=== PATIENT | male | born 1945 | race Caucasian/White ===

== ENCOUNTER 2017-05-31 15:44 | Emergency (ER) | payer BC, OTHER ==
[~2017-05-31] VITALS: Ht 180.3 cm; Wt 90.0 kg
[2017-05-31] MEDS ORDERED: IOHEXOL 350 MG/ML 10 ML VIAL (for RAD DIAG) IVCONTRAST ONE (15:45)
[2017-05-31 15:52] VITALS: TEMP 97.7
[2017-05-31] MEDS ORDERED: ONDANSETRON HCL 4 MG/2 ML VIAL IV PUSH ONE (16:00)
[2017-05-31] MEDS ORDERED: SODIUM CHLORIDE 0.9% FLUSH 10 ML FLUSH IVF PRN (16:00)
[2017-05-31] MEDS ORDERED: MORPHINE SULFATE 4 MG/ML INJ IV ONE (16:00)
[2017-05-31 16:01] VITALS: BP 185/90; PULSE 65; RESP 14; O2SAT 97
--- NOTE | 2017-05-31 16:23 | RADRPT ---
EXAM DATE/TIME: 05/31/2017 16:01 [facility] COMPARISON: No previous studies available for comparison. INDICATIONS : Pain in chest, patient fell off roof 1 story. MEDICAL HISTORY : None. SURGICAL HISTORY : None. ENCOUNTER: Initial ACUITY: 1 day PAIN SCORE: 0/10 LOCATION: Bilateral chest FINDINGS: A single view of the chest demonstrates the lungs to be symmetrically aerated without evidence of mas s, infiltrate or effusion. The cardiomediastinal contours are unremarkable. Osseous structures are intact. CONCLUSION: 1. No acute cardiopulmonary findings. Kristofer Agustin MD on May 31, 2017 at 16:21 Board Certified Radiologist. This report was verified electronically.
[2017-05-31 16:50] LABS: BASOPHIL # 0.1 TH/MM3 (0-0.2); BASOPHIL % 0.9 % (0.0-2.0); EOSINOPHIL # 0.2 TH/MM3 (0-0.4); HEMATOCRIT 40.7 % (39.0-51.0); HEMO FLAGS DIFF FINAL; LYMPH % 12.2 % (9.0-44.0); MEAN CELL VOLUME 88.5 FL (80.0-100.0); MEAN CORPUSCULAR HEMOGLOBIN 30.1 PG (27.0-34.0); MONO % 9.1 % (0.0-8.0); NEUT % 75.8 % (16.0-70.0); PLATELET COUNT 238 TH/MM3 (150-450); RED CELL DISTRIBUTION WIDTH 12.7 % (11.6-17.2); WHITE BLOOD COUNT 7.9 TH/MM3 (4.0-11.0)
[2017-05-31 16:57] LABS: APTT (PATIENT) 25.9 SEC (24.3-30.1); PROTHROMBIN TIME - PATIENT 11.1 SEC (9.8-11.6)
[2017-05-31 17:10] LABS: BICARBONATE 25.8 MEQ/L (21.0-32.0); POTASSIUM 3.9 MEQ/L (3.5-5.1)
--- NOTE | 2017-05-31 17:34 | PD ---
HPI Chief Complaint: Fall Time Seen by Provider: 16:00 Travel History International Travel<30 days: No Contact w/Intl Traveler<30days: No Traveled to known affect area: No History of Present Illness HPI Patient is a 71-year-old male presenting to the emergency upper after he fell off of his roof. Patient fell from approximately 10 feet, the latter patient was standing on slipped out from underneath him and he slid grabbing onto the gutter subsequent relief following to the ground. Patient presented with pain in his hand, left shoulder, abdomen. He denies any head injury or loss of consciousness. He reports his pain is minimal and states it's sore. Patient has a past medical history significant for hypertension. He currently takes aspirin 81 mg daily. He denies any back pain, leg pain, hip pain, chest pain, shortness of breath, headache. PFSH Past Medical History Cardiac Catheterization: Yes (1 stent) Diminished Hearing: No Hypertension: Yes Tetanus Vaccination: Unknown ?: Not Social History Alcohol Use: Yes (wine/beer nightly) Tobacco Use: No Substance Use: No Allergies-Medications (Allergen,Severity, Reaction): Uncoded Allergies: pcn (Allergy, Unknown, 05/31/17) Reported Meds & Prescriptions Reported Meds & Active Scripts Active Ibuprofen 600 Mg Tab 600 Mg PO Q6H PRN Flexeril (Cyclobenzaprine HCl) 5 Mg Tab 5 Mg PO TID Percocet (Oxycodone-Acetaminophen) 5-325 mg Tab 1 Tab PO Q6H PRN Review of Systems Except as stated in HPI: all other systems reviewed are Neg HENT: No: Neck Pain Gastrointestinal: Positive: Abdominal Pain Musculoskeletal: Positive: Myalgias, Pain Physical Exam Narrative GENERAL: Well-developed, well-nourished, alert male. Resting comfortably in no acute distress. SKIN: Warm and dry. Ecchymosis noted to bilateral palms. Laceration to right lower lip HEAD: Atraumatic. Normocephalic. EYES: Pupils equal and round. No scleral icterus. No injection or drainage. ENT: No nasal bleeding or discharge. Mucous membranes pink and moist. NECK: Trachea midline. No JVD. CARDIOVASCULAR: Regular rate and rhythm. RESPIRATORY: No accessory muscle use. Clear to auscultation. Breath sounds equal bilaterally. GASTROINTESTINAL: Abdomen soft, tenderness to palpation in right upper quadrant and right flank, nondistended. Hepatic and splenic margins not palpable. Positive bowel sounds, positive guarding, no rebound. MUSCULOSKELETAL: Extremities without clubbing, cyanosis, or edema. No obvious deformities. NEUROLOGICAL: Awake and alert. No obvious cranial nerve deficits. Motor grossly within normal limits. Five out of 5 muscle strength in the arms and legs. Normal speech. Full range of motion in left shoulder. Tenderness to palpation in the paraspinal musculature and cervical region. No spinal tenderness or step-off noted. PSYCHIATRIC: Appropriate mood and affect; insight and judgment normal. Data Data Last Documented VS Vital Signs Date Time Temp Pulse Resp B/P (MAP) Pulse Ox O2 Delivery O2 Flow Rate FiO2 05/31/17 19:53 05/31/17 16:10 98 Room Air 05/31/17 16:01 65 14 05/31/17 15:52 97.7 Orders Orders Basic Metabolic Panel (Bmp) (05/31/17 16:00) Complete Blood Count With Diff (05/31/17 16:00) Prothrombin Time / Inr (Pt) (05/31/17 16:00) Act Partial Throm Time (Ptt) (05/31/17 16:00) Chest, Single Ap (05/31/17 16:00) Ct Brain W/O Iv Contrast(Rout) (05/31/17 16:00) Ct Cerv Spine W/O Contrast (05/31/17 16:00) Ct Abd/Pel W Iv Contrast(Rout) (05/31/17 16:00) Ct Thorax/ Chest W Iv Contrast (05/31/17 16:00) Ct Thor Spine W/O Contrast (05/31/17 16:00) Ct Lumb Spine W/O Contrast (05/31/17 16:00) Iv Access Insert/Monitor (05/31/17 16:00) Ecg Monitoring (05/31/17 16:00) Oximetry (05/31/17 16:00) Oxygen Administration (05/31/17 16:00) Morphine Inj (Morphine Inj) (05/31/17 16:00) Sodium Chloride 0.9% Flush (Ns Flush) (05/31/17 16:00) Ondansetron Inj (Zofran Inj) (05/31/17 16:00) Iohexol 350 Inj (Omnipaque 350 Inj) (05/31/17 15:45) Lidocaine 1% Inj (50 Ml) (Xylocaine 1% I (05/31/17 19:00) Labs Laboratory Tests Test 05/31/17 16:10 White Blood Count 7.9 TH/MM3 Red Blood Count 4.60 MIL/MM3 Hemoglobin 13.8 GM/DL Hematocrit 40.7 % Mean Corpuscular Volume 88.5 FL Mean Corpuscular Hemoglobin 30.1 PG Mean Corpuscular Hemoglobin Concent 34.0 % Red Cell Distribution Width 12.7 % Platelet Count 238 TH/MM3 Mean Platelet Volume 8.7 FL Neutrophils (%) (Auto) 75.8 % Lymphocytes (%) (Auto) 12.2 % Monocytes (%) (Auto) 9.1 % Eosinophils (%) (Auto) 2.0 % Basophils (%) (Auto) 0.9 % Neutrophils # (Auto) 6.0 TH/MM3 Lymphocytes # (Auto) 1.0 TH/MM3 Monocytes # (Auto) 0.7 TH/MM3 Eosinophils # (Auto) 0.2 TH/MM3 Basophils # (Auto) 0.1 TH/MM3 CBC Comment DIFF FINAL Differential Comment Prothrombin Time 11.1 SEC Prothromb Time International Ratio 1.0 RATIO Activated Partial Thromboplast Time 25.9 SEC Blood Urea Nitrogen 23 MG/DL Creatinine 1.23 MG/DL Random Glucose 123 MG/DL Calcium Level 8.5 MG/DL Sodium Level 144 MEQ/L Potassium Level 3.9 MEQ/L Chloride Level 111 MEQ/L Carbon Dioxide Level 25.8 MEQ/L Anion Gap 7 MEQ/L Estimat Glomerular Filtration Rate 58 ML/MIN MDM Medical Decision Making Medical Screen Exam Complete: Yes Emergency Medical Condition: Yes Interpretation(s) Last Impressions Head CT 05/31/17 1600 Signed Impressions: Service Date/Time: Wednesday, May 31, 2017 17:51 - CONCLUSION: No bleed or other acute intracranial abnormality. Wilder Jimenez MD Chest X-Ray 05/31/17 1600 Signed Impressions: Service Date/Time: Wednesday, May 31, 2017 16:01 - CONCLUSION: 1. No acute cardiopulmonary findings. Kristofer Agustin MD Chest CT 05/31/17 1600 Signed Impressions: Service Date/Time: Wednesday, May 31, 2017 18:08 - CONCLUSION: No evidence of acute traumatic chest injury. Trace atelectasis of both lung bases. Wilder Jimenez MD Cervical Spine CT 05/31/17 1600 Signed Impressions: Service Date/Time: Wednesday, May 31, 2017 17:58 - CONCLUSION: No fracture or subluxation of the cervical spine. Degenerative changes as above. Wilder Jimenez MD Abdomen/Pelvis CT 05/31/17 1600 Signed Impressions: Service Date/Time: Wednesday, May 31, 2017 18:03 - CONCLUSION: No visceral organ injury, fracture or other acute abnormality demonstrated. Wilder Jimenez MD Laboratory Tests Test 05/31/17 16:10 White Blood Count 7.9 TH/MM3 Red Blood Count 4.60 MIL/MM3 Hemoglobin 13.8 GM/DL Hematocrit 40.7 % Mean Corpuscular Volume 88.5 FL Mean Corpuscular Hemoglobin 30.1 PG Mean Corpuscular Hemoglobin Concent 34.0 % Red Cell Distribution Width 12.7 % Platelet Count 238 TH/MM3 Mean Platelet Volume 8.7 FL Neutrophils (%) (Auto) 75.8 % Lymphocytes (%) (Auto) 12.2 % Monocytes (%) (Auto) 9.1 % Eosinophils (%) (Auto) 2.0 % Basophils (%) (Auto) 0.9 % Neutrophils # (Auto) 6.0 TH/MM3 Lymphocytes # (Auto) 1.0 TH/MM3 Monocytes # (Auto) 0.7 TH/MM3 Eosinophils # (Auto) 0.2 TH/MM3 Basophils # (Auto) 0.1 TH/MM3 CBC Comment DIFF FINAL Differential Comment Prothrombin Time 11.1 SEC Prothromb Time International Ratio 1.0 RATIO Activated Partial Thromboplast Time 25.9 SEC Blood Urea Nitrogen 23 MG/DL Creatinine 1.23 MG/DL Random Glucose 123 MG/DL Calcium Level 8.5 MG/DL Sodium Level 144 MEQ/L Potassium Level 3.9 MEQ/L Chloride Level 111 MEQ/L Carbon Dioxide Level 25.8 MEQ/L Anion Gap 7 MEQ/L Estimat Glomerular Filtration Rate 58 ML/MIN Vital Signs Date Time Temp Pulse Resp B/P (MAP) Pulse Ox O2 Delivery O2 Flow Rate FiO2 05/31/17 16:10 98 Room Air 05/31/17 16:01 65 14 185/90 (121) 97 Room Air 05/31/17 15:52 97.7 68 18 Differential Diagnosis Hemorrhage versus sprain versus strain versus fracture versus other Narrative Course Patient is a 71-year-old male presented to the emergency department after falling off of a ladder and his roof. Patient was brought in via EMS on a backboard and in a cervical collar. Patient's vital signs are stable, there were no focal deficits noted on exam. Due to mechanism of injury patient was alegria scanned. Patient was given morphine and Zofran for pain. Labs reviewed, no acute abnormalities identified. CT of the brain is negative for acute abnormality CT of the cervical spine is negative for acute abnormality CT of the chest is negative for acute abnormality CT scan of the abdomen and pelvis is negative for acute abnormality Please see procedure report for laceration repair. Patient was advised that he may feel more sore tomorrow. He was encouraged to take medications as needed and as directed for pain. He was encouraged to avoid driving while taking narcotic pain medication. He was advised follow-up with his primary doctor. He was encouraged to return to emergency department for any new or worsening symptoms. Was understanding of these instructions. Patient is stable for discharge. Diagnosis Primary Impression: Fall Qualified Codes: W19.XXXA - Unspecified fall, initial encounter Additional Impressions: Lip laceration Qualified Codes: S01.511A - Laceration without foreign body of lip, initial encounter Contusion of hand(s) Referrals: Primary Care Physician Patient Instructions: Contusion in Adults (ED), General Instructions, Muscle Strain (DC), Narcotic given in the ED Additional Instructions: Follow-up with your primary doctor Return to emergency department for any new or worsening symptoms Take medications as needed and as directed for pain Do not drive or operate machinery taking narcotic pain medication Apply warm moist heat to affected areas, continue range of motion exercises, avoid bed rest, avoid exacerbating activities. Med/Other Pt SpecificInfo: Prescription(s) given Scripts Sulfamethoxazole-Trimethoprim (Bactrim DS) 800-160 Mg Tab 1 TAB PO BID for Infection, #14 TAB 0 Refills Prov: Ladonna Mckeon 05/31/17 Ibuprofen (Ibuprofen) 600 Mg Tab 600 MG PO Q6H Y for PAIN, #30 TAB 0 Refills Prov: Ladonna Mckeon 05/31/17 Cyclobenzaprine (Flexeril) 5 Mg Tab 5 MG PO TID for Muscle Spasm, #30 TAB 0 Refills Prov: Ladonna Mckeon 05/31/17 Oxycodone-Acetaminophen (Percocet) 5-325 mg Tab 1 TAB PO Q6H Y for PAIN, #10 TAB 0 Refills Prov: Ladonna Mckeon 05/31/17 Disposition: 01 DISCHARGE HOME Condition: Stable Ladonna Mckeon May 31, 2017 17:34
--- NOTE | 2017-05-31 18:18 | RADRPT ---
EXAM DATE/TIME: 05/31/2017 17:51 [facility] COMPARISON: No previous studies available for comparison. INDICATIONS : Patient fall from roof, head pain. RADIATION DOSE: 56.35 CTDIvol (mGy) MEDICAL HISTORY : Hypertension. SURGICAL HISTORY : Coronary artery stent. ENCOUNTER: Initial ACUITY: 1 day PAIN SCALE: 7/10 LOCATION: Right cranial TECHNIQUE: Multiple contiguous axial images were obtained of the head. Using automated exposure control and adj ustment of the mA and/or kV according to patient size, radiation dose was kept as low as reasonably a chievable to obtain optimal diagnostic quality images. DICOM format image data is available electro nically for review and comparison. FINDINGS: CEREBRUM: The ventricles are normal for age. No evidence of midline shift, mass lesion, hemorrhage or acute in farction. No extra-axial fluid collections are seen. Mild chronic low-attenuation seen in the perive ntricular white matter. POSTERIOR FOSSA: The cerebellum and brainstem are intact. The 4th ventricle is midline. The cerebellopontine angle i s unremarkable. EXTRACRANIAL: The visualized portion of the orbits is intact. SKULL: The calvaria is intact. No evidence of skull fracture. CONCLUSION: No bleed or other acute intracranial abnormality. Wilder Jimenez MD on May 31, 2017 at 18:16 Board Certified Radiologist. This report was verified electronically.
--- NOTE | 2017-05-31 18:37 | RADRPT ---
EXAM DATE/TIME: 05/31/2017 17:58 [facility] COMPARISON: No previous studies available for comparison. INDICATIONS : Neck pain due to fall off roof. RADIATION DOSE: 41.84 CTDIvol (mGy) MEDICAL HISTORY : Hypertension. SURGICAL HISTORY : Coronary artery stent. ENCOUNTER: Initial ACUITY: 1 day PAIN SCALE: 7/10 LOCATION: Right neck region. TECHNIQUE: Volumetric scanning of the cervical spine was performed. Multiplanar reconstructions in the sagittal, coronal and oblique axial planes were performed. Using automated exposure control and adjustment o f the mA and/or kV according to patient size, radiation dose was kept as low as reasonably achievable to obtain optimal diagnostic quality images. DICOM format image data is available electronically f or review and comparison. FINDINGS: VERTEBRAE: Normal vertebral body height. ALIGNMENT: No evidence of subluxation. C2-C3: The bony spinal canal is normal in size. No evidence of disc bulge or herniation. The neural forami na are bilaterally patent. C3-C4: The bony spinal canal is normal in size. No evidence of disc bulge or herniation. The neural forami na are bilaterally patent. C4-C5: Mild disc space narrowing without perceptible bulge or protrusion. There is right greater than left u ncovertebral and facet osteoarthritis. No perceptible foraminal or spinal stenosis. C5-C6: Severe disc space narrowing with a small, broad/diffuse disc osteophyte complex and moderate bilatera l uncovertebral and facet osteoarthritis. There is mild right and moderate left foraminal stenosis. N o significant spinal stenosis demonstrated. C6-C7: Moderate disc space narrowing with a very small, broad/diffuse disc osteophyte complex and mild to mo derate bilateral uncovertebral and facet osteoarthritis. The mild foraminal encroachment, mostly on t he left. C7-T1: Disc height within normal limits. Moderate bilateral facet osteoarthritis. CONCLUSION: No fracture or subluxation of the cervical spine. Degenerative changes as above. Wilder Jimenez MD on May 31, 2017 at 18:33 Board Certified Radiologist. This report was verified electronically.
--- NOTE | 2017-05-31 18:40 | RADRPT ---
EXAM DATE/TIME: 05/31/2017 18:03 [facility] COMPARISON: No previous studies available for comparison. INDICATIONS : Gastric pain due to fall off of roof. IV CONTRAST: 95 cc Omnipaque 350 (iohexol) IV ORAL CONTRAST: No oral contrast ingested. RADIATION DOSE: 9.96 CTDIvol (mGy) ; Combined studies - Thorax/Abdomen/Pelvis MEDICAL HISTORY : Hypertension. SURGICAL HISTORY : Coronary artery stent. ENCOUNTER: Initial ACUITY: 1 day PAIN SCALE: 6/10 LOCATION: gastric region. TECHNIQUE: Volumetric scanning of the abdomen and pelvis was performed. Using automated exposure control and ad justment of the mA and/or kV according to patient size, radiation dose was kept as low as reasonably achievable to obtain optimal diagnostic quality images. DICOM format image data is available electro nically for review and comparison. FINDINGS: LIVER: Homogeneous density without lesion. There is no dilation of the biliary tree. No calcified gallston es. SPLEEN: Normal size without lesion. PANCREAS: Scattered small cysts. The kidneys are intact. KIDNEYS: Normal in size and shape. There is no mass, stone or hydronephrosis. ADRENAL GLANDS: Within normal limits. VASCULAR: There is no aortic aneurysm. BOWEL/MESENTERY: The stomach, small bowel, and colon demonstrate no acute abnormality. There is no free intraperitone al air or fluid. Normal appendix. ABDOMINAL WALL: Within normal limits. RETROPERITONEUM: There is no lymphadenopathy. BLADDER: No wall thickening or mass. REPRODUCTIVE: Within normal limits. INGUINAL: There is no lymphadenopathy or hernia. MUSCULOSKELETAL: No fracture seen of the visualized osseous structures. CONCLUSION: No visceral organ injury, fracture or other acute abnormality demonstrated. Wilder Jimenez MD on May 31, 2017 at 18:36 Board Certified Radiologist. This report was verified electronically.
--- NOTE | 2017-05-31 18:42 | RADRPT ---
EXAM DATE/TIME: 05/31/2017 18:08 [facility] COMPARISON: No previous studies available for comparison. INDICATIONS : Chest pains from fall off of roof. IV CONTRAST: 95 cc Omnipaque 350 (iohexol) IV RADIATION DOSE: 9.96 CTDIvol (mGy) MEDICAL HISTORY : Hypertension. SURGICAL HISTORY : Coronary artery stent. ENCOUNTER: Initial ACUITY: 1 day PAIN SCALE: 6/10 LOCATION: Right chest TECHNIQUE: Volumetric scanning of the chest was performed. Using automated exposure control and adjustment of t he mA and/or kV according to patient size, radiation dose was kept as low as reasonably achievable to obtain optimal diagnostic quality images. DICOM format image data is available electronically for review and comparison. Follow-up recommendations for detected pulmonary nodules are based at a minimum on nodule size and pa tient risk factors according to Fleischner Society Guidelines. FINDINGS: LUNGS: Trace atelectasis of the bases. PLEURA: There is no pleural thickening or pleural effusion. MEDIASTINUM: The heart and great vessels demonstrate no acute abnormality. There is no mediastinal or hilar lymph adenopathy. AXILLAE: Within normal limits. No lymphadenopathy. SKELETAL: Within normal limits for patient age. MISCELLANEOUS: The visualized upper abdominal organs demonstrate no acute abnormality. CONCLUSION: No evidence of acute traumatic chest injury. Trace atelectasis of both lung bases. Wilder Jimenez MD on May 31, 2017 at 18:39 Board Certified Radiologist. This report was verified electronically.
--- NOTE | 2017-05-31 18:52 | RADRPT ---
EXAM DATE/TIME: 05/31/2017 18:08 [facility] COMPARISON: No previous studies available for comparison. INDICATIONS : Mid back pain due to fall off roof. RADIATION DOSE: ; Reconstructed from previous dataset, no dose MEDICAL HISTORY : Hypertension. SURGICAL HISTORY : Coronary artery stent. ENCOUNTER: Initial ACUITY: 1 day PAIN SCALE: 7/10 LOCATION: Right chest region. TECHNIQUE: Volumetric scanning of the thoracic spine was performed. Multiplanar reconstructions in the sagittal , coronal and oblique axial planes were performed. Using automated exposure control and adjustment o f the mA and/or kV according to patient size, radiation dose was kept as low as reasonably achievable to obtain optimal diagnostic quality images. DICOM format image data is available electronically f or review and comparison. FINDINGS: Slight dextroconvex curvature and mild exaggeration of the thoracic kyphosis. The vertebral bodies of the thoracic spine are without subluxation. Vertebral body height is maintained. No fractures are seen. T1-T2: Normal. T2-T3: The thecal sac has a normal diameter. No evidence of disc bulge or protrusion. T3-T4: The thecal sac has a normal diameter. No evidence of disc bulge or protrusion. T4-T5: The thecal sac has a normal diameter. No evidence of disc bulge or protrusion. T5-T6: The thecal sac has a normal diameter. No evidence of disc bulge or protrusion. T6-T7: The thecal sac has a normal diameter. No evidence of disc bulge or protrusion. T7-T8: The thecal sac has a normal diameter. No evidence of disc bulge or protrusion. T8-T9: Mild disc space narrowing and vacuum phenomena. Mild anterior and lateral osseous ridging. No foramin al or spinal stenosis. T9-T10: The thecal sac has a normal diameter. No evidence of disc bulge or protrusion. T10-T11: The thecal sac has a normal diameter. No evidence of disc bulge or protrusion. T11-T12: The thecal sac has a normal diameter. No evidence of disc bulge or protrusion. T12-L1: The thecal sac has a normal diameter. No evidence of disc bulge or protrusion. CONCLUSION: Intact thoracic spine. Very mild degenerative changes, mostly T8/T9. Also mild kyphoscoliosis. Wilder Jimenez MD on May 31, 2017 at 18:48 Board Certified Radiologist. This report was verified electronically.
[2017-05-31] MEDS ORDERED: LIDOCAINE HCL 1% 50 ML VIAL INFIL ONE (19:00)
--- NOTE | 2017-05-31 19:00 | RADRPT ---
EXAM DATE/TIME: 05/31/2017 18:03 [facility] COMPARISON: No previous studies available for comparison. INDICATIONS : Low back pain due to fall off roof. RADIATION DOSE: ; Reconstructed from previous dataset, no dose MEDICAL HISTORY : Hypertension. SURGICAL HISTORY : Coronary artery stent. ENCOUNTER: Initial ACUITY: 1 day PAIN SCALE: 6/10 LOCATION: Right lower back. TECHNIQUE: Volumetric scanning of the lumbar spine was performed. Multiplanar reconstructions in the sagittal, coronal and oblique axial planes were performed. Using automated exposure control and adjustment of the mA and/or kV according to patient size, radiation dose was kept as low as reasonably achievable t o obtain optimal diagnostic quality images. DICOM format image data is available electronically for review and comparison. FINDINGS: Slight levoconvex curvature of the lumbar spine. No subluxations. No cortical break or trabecular dis ruption. Vertebral body heights are normal. Mild disc space narrowing with moderate bilateral facet osteoarthritis seen from L3/L4-L5/S1. Small, broad-based protrusions with thickening of the ligamentum flavum seen at each level. There is mild ri ght foraminal stenosis at L4/L5 and mild left foraminal stenosis at L5/S1. CONCLUSION: 1. No fracture or subluxation of the lumbar spine. 2. Mid and lower lumbar degenerative changes as above. Wilder Jimenez MD on May 31, 2017 at 18:56 Board Certified Radiologist. This report was verified electronically.
[2017-05-31] MEDS ORDERED: IBUP-232 PO (19:10)
[2017-05-31] MEDS ORDERED: PERC5TAB12 PO (19:10)
[2017-05-31] MEDS ORDERED: CYCL5TAB PO (19:10)
[2017-05-31] MEDS ORDERED: BACT800T5 PO (20:02)
--- NOTE | 2017-05-31 20:16 | PD ---
Physical Exam Date Seen by Provider: May 31, 2017 Time Seen by Provider: 20:10 Data Data Last Documented VS Vital Signs Date Time Temp Pulse Resp B/P (MAP) Pulse Ox O2 Delivery O2 Flow Rate FiO2 05/31/17 19:53 05/31/17 16:10 98 Room Air 05/31/17 16:01 65 14 05/31/17 15:52 97.7 Orders Orders Basic Metabolic Panel (Bmp) (05/31/17 16:00) Complete Blood Count With Diff (05/31/17 16:00) Prothrombin Time / Inr (Pt) (05/31/17 16:00) Act Partial Throm Time (Ptt) (05/31/17 16:00) Chest, Single Ap (05/31/17 16:00) Ct Brain W/O Iv Contrast(Rout) (05/31/17 16:00) Ct Cerv Spine W/O Contrast (05/31/17 16:00) Ct Abd/Pel W Iv Contrast(Rout) (05/31/17 16:00) Ct Thorax/ Chest W Iv Contrast (05/31/17 16:00) Ct Thor Spine W/O Contrast (05/31/17 16:00) Ct Lumb Spine W/O Contrast (05/31/17 16:00) Iv Access Insert/Monitor (05/31/17 16:00) Ecg Monitoring (05/31/17 16:00) Oximetry (05/31/17 16:00) Oxygen Administration (05/31/17 16:00) Morphine Inj (Morphine Inj) (05/31/17 16:00) Sodium Chloride 0.9% Flush (Ns Flush) (05/31/17 16:00) Ondansetron Inj (Zofran Inj) (05/31/17 16:00) Iohexol 350 Inj (Omnipaque 350 Inj) (05/31/17 15:45) Lidocaine 1% Inj (50 Ml) (Xylocaine 1% I (05/31/17 19:00) Labs Laboratory Tests Test 05/31/17 16:10 White Blood Count 7.9 TH/MM3 Red Blood Count 4.60 MIL/MM3 Hemoglobin 13.8 GM/DL Hematocrit 40.7 % Mean Corpuscular Volume 88.5 FL Mean Corpuscular Hemoglobin 30.1 PG Mean Corpuscular Hemoglobin Concent 34.0 % Red Cell Distribution Width 12.7 % Platelet Count 238 TH/MM3 Mean Platelet Volume 8.7 FL Neutrophils (%) (Auto) 75.8 % Lymphocytes (%) (Auto) 12.2 % Monocytes (%) (Auto) 9.1 % Eosinophils (%) (Auto) 2.0 % Basophils (%) (Auto) 0.9 % Neutrophils # (Auto) 6.0 TH/MM3 Lymphocytes # (Auto) 1.0 TH/MM3 Monocytes # (Auto) 0.7 TH/MM3 Eosinophils # (Auto) 0.2 TH/MM3 Basophils # (Auto) 0.1 TH/MM3 CBC Comment DIFF FINAL Differential Comment Prothrombin Time 11.1 SEC Prothromb Time International Ratio 1.0 RATIO Activated Partial Thromboplast Time 25.9 SEC Blood Urea Nitrogen 23 MG/DL Creatinine 1.23 MG/DL Random Glucose 123 MG/DL Calcium Level 8.5 MG/DL Sodium Level 144 MEQ/L Potassium Level 3.9 MEQ/L Chloride Level 111 MEQ/L Carbon Dioxide Level 25.8 MEQ/L Anion Gap 7 MEQ/L Estimat Glomerular Filtration Rate 58 ML/MIN [facility] Medical Record Reviewed: Yes Supervised Visit with FOUZIA: Yes Narrative Course I was asked by the provider to repair the laceration. The patient was alert, oriented and cooperative. A laceration to the right lateral lip that extended upward into the oral mucosa was noted. Laceration was repaired. Please see my procedure narrative for details. Dr. Owen retains care of the patient. Please see his documentation for details and disposition. Procedures Procedure Narrative LACERATION LOCATION: Right lateral lip LENGTH: 2.5 cm NUMBER OF STITCHES/JENNIFER: 9 sutures REPAIR: The area of the laceration was prepped with Betadine and sterilely draped. The laceration was infiltrated with 1% lidocaine. The wound was copiously irrigated and explored without evidence of foreign body, tendon injury or neurovascular injury. The wound was closed using 3x 5.0 Vicryl and 6x 5. 0 Prolene. This was a single layer repair. A sterile dressing was applied. The patient was advised to keep the dressing clean and dry. Patient tolerated the procedure well. Diagnosis Primary Impression: Fall Qualified Codes: W19.XXXA - Unspecified fall, initial encounter Additional Impressions: Lip laceration Qualified Codes: S01.511A - Laceration without foreign body of lip, initial encounter Contusion of hand(s) Referrals: Primary Care Physician Patient Instructions: General Instructions, Narcotic given in the ED, Muscle Strain (DC), Contusion in Adults (ED) Departure Forms: Tests/Procedures Additional Instruction: Follow-up with your primary doctor Return to emergency department for any new or worsening symptoms Take medications as needed and as directed for pain Do not drive or operate machinery taking narcotic pain medication Apply warm moist heat to affected areas, continue range of motion exercises, avoid bed rest, avoid exacerbating activities. Scripts Sulfamethoxazole-Trimethoprim (Bactrim DS) 800-160 Mg Tab 1 TAB PO BID for Infection, #14 TAB 0 Refills Prov: Ladonna Mckeon 05/31/17 Ibuprofen (Ibuprofen) 600 Mg Tab 600 MG PO Q6H Y for PAIN, #30 TAB 0 Refills Prov: Ladonna Mckeon 05/31/17 Cyclobenzaprine (Flexeril) 5 Mg Tab 5 MG PO TID for Muscle Spasm, #30 TAB 0 Refills Prov: Ladonna Mckeon 05/31/17 Oxycodone-Acetaminophen (Percocet) 5-325 mg Tab 1 TAB PO Q6H Y for PAIN, #10 TAB 0 Refills Prov: Ladonna Mckeon 05/31/17 Disposition: 01 DISCHARGE HOME Condition: Stable Serena Buchanan May 31, 2017 20:16
== END 2017-05-31 20:14 | disposition home or self-care (01) ==
LOC: NEPD 15:44 → EDSEX 15:44 → NEPD 20:14
DX: S01.511A Laceration without foreign body of lip, initial encounter (principal); S60.229A Contusion of unspecified hand, initial encounter; M79.1 Myalgia; R10.9 Unspecified abdominal pain; I10 Essential (primary) hypertension; W11.XXXA Fall on and from ladder, initial encounter; Y92.008 Other place in unspecified non-institutional (private) residence as the place of occurrence of the external cause; Z79.82 Long term (current) use of aspirin
CPT/HCPCS: 12011; 70450; 71010; 71260; 72125; 72128; 72131; 74177; 80048; 85025; 85610; 85730; 99285; Q9967